=== PATIENT | male | born 1945 | race Caucasian/White ===

== ENCOUNTER → 2017-01-17 | Outpatient (CLI) | payer OTHER, MEDICARE ==
[~2017-01-17] MED LIST: ACETAMINOPHEN; AMLODIPINE BESY10 MG PO; ARTHRITIS PAIN650 M4 PO; CIPRO PO; FLOMAX0.4 M1 PO; ISOSORBIDE DINI30 MG PO; SOF-LAX100 MG PO; SYNTHROID25 MCG PO
--- NOTE | ~2017-01-17 | CT2 ---
[facility] A Service of [facility] RADIOLOGY TEXT RESULTS PATIENT: LISA STEINER JR LOCATION: [facility] : 49 UNIT #: [id number] AGE: [address]: Osorio Tan MD SEX: M ORDER DR: [id number] [facility]. [place], [place] [address] [id number] O MR#: [id number] Acc #: [id number] NAME: LISA STEINER JR : 1945 SEX: M STUDY DATE/TIME: 01/17/2017 10:09 UNIT: [facility] ROOM: STUDY DESCRIPTION: CT Abd and Pelv W Cont Attending Physician: Osorio Tan M.D. Ordering Physician: Osorio Tan M.D. Primary Care Physician: Gilberto Clay M.D. MEDICAL IMAGING REPORT This report is preliminary unless electronic signature is present EXAM CT of the abdomen and pelvis. INDICATIONS Shortness of air, anemia, fatigue and generalized weakness increasing in severity. TECHNIQUE CT of the abdomen and pelvis with p.o. and IV contrast (100 mL Isovue-370 IV contrast). Coronal and sagittal reconstructions were obtained. This CT exam was performed with one or more of the following radiation dose reduction techniques: automatic exposure control, adjustment of mA and/or kV according to patient size, and iterative reconstruction. COMPARISON CT of abdomen and pelvis, 11/14/2014. FINDINGS ABDOMEN: Solid abdominal organs enhance normally. The gallbladder is not distended. There are a few small cysts within the kidneys. No hydronephrosis. The bowel is not dilated. There are some left-sided colonic diverticula. Normal appendix. The abdominal aorta is normal in caliber. PELVIS: No pelvic mass. The bladder is unremarkable. No enlarged pelvic or inguinal lymph nodes. No acute osseous abnormalities. IMPRESSION 1. No acute findings in the abdomen or pelvis. [facility] A Service of [facility] / [facility] RADIOLOGY TEXT RESULTS PATIENT: LISA STEINER JR LOCATION: [facility] : 49 UNIT #: [id number] AGE: [address]: Osorio Tan MD SEX: M ORDER DR: Dictated by... Reynaldo Bledsoe M.D. THIS IS AN ELECTRONICALLY VERIFIED REPORT Reynaldo Bledsoe M.D. at 01/19/2017 5:11 PM UVALDO/ramesh TD: 01/18/2017 16:01 JOB #: [id number] MEDICAL IMAGING REPORT Page 1 of 1 COPY
[2017-01-17 11:26] LABS: POC - CREATININE 1.11 mg/dL (0.64-1.27); POC - GFR >60.0 mL/min (>60)
== END | disposition home or self-care (01) ==
LOC: CCAT 08:37
PROVIDERS: Internal Medicine Hematology & Oncology
DX: D59.9 Acquired hemolytic anemia, unspecified (principal); D64.9 Anemia, unspecified; R06.02 Shortness of breath; R53.81 Other malaise; R53.83 Other fatigue
CPT/HCPCS: 74177; 82565; Q9967

== ENCOUNTER → 2017-01-20 | Outpatient (CLI) | payer OTHER, MEDICARE ==
[~2017-01-20] VITALS: Ht 172.7 cm; Wt 76.4 kg
--- NOTE | ~2017-01-20 | XA51 ---
[facility] A Service of [facility] RADIOLOGY TEXT RESULTS PATIENT: LISA STEINER JR [facility] : 49 UNIT #: [id number] AGE: [address]: Osorio Tan MD SEX: M ORDER DR: [id number] [facility]. [place], [place] [address] [id number] O MR#: [id number] Acc #: [id number] NAME: LISA STEINER JR : 1945 SEX: M STUDY DATE/TIME: 01/20/2017 8:12 [facility] ROOM: STUDY DESCRIPTION: XA BX Bone Marrow Attending Physician: Osorio Tan M.D. Ordering Physician: Osorio Tan M.D. Primary Care Physician: Gilberto Clay M.D. MEDICAL IMAGING REPORT This report is preliminary unless electronic signature is present PROCEDURE Fluoroscopic guided bone marrow biopsy and aspiration. INDICATION Anemia. The fluoro time was 0.9 minutes. Reference air kerma is 42 mGy. Medications administered 3.5 mg of Versed IV and 75 mcg of Fentanyl IV. Approximately 30 minutes of sedation time was monitored by appropriately credentialed radiology nursing staff with 10 minutes of [id number] direct supervision provided by Dr. Blandon. Risks, benefits, and alternatives to the procedure were discussed with the patient. Informed consent was obtained. In the procedure room a time-out was performed confirming correct patient and procedure. All elements of maximum sterile-barrier technique utilized according to guidelines appropriate for the procedure. TECHNIQUE/FINDINGS Patient was placed in the prone position on the fluoroscopy table. Skin overlying the posterior iliac bone was prepped and draped in the usual sterile fashion. 1% lidocaine was utilized to anesthetize the skin and underlying subcutaneous tissues. Next, under fluoroscopic guidance, a 11-gauge needle was advanced into the posterior right iliac crest. Through this access a bone marrow aspirate followed by core biopsy was obtained. Sample sent to pathology. The needle was removed and a sterile dressing was applied. No immediate complications. IMPRESSION Technically successful fluoroscopically guided bone marrow biopsy and aspiration. STS. [facility] A Service of [facility] RADIOLOGY TEXT RESULTS PATIENT: LISA STEINER JR [facility] : 49 UNIT #: [id number] AGE: [address]: Osorio Tan MD SEX: M ORDER DR: Dictated by... Chris Blandon M.D. THIS IS AN ELECTRONICALLY VERIFIED REPORT Chris Blandon M.D. at 01/22/2017 5:01 PM Lucho TD: 01/21/2017 10:49 JOB #: [id number] MEDICAL IMAGING REPORT Page 1 of 1 COPY
[2017-01-20 06:39] LABS: HEMATOCRIT 34.6 % (38.0-50.0); HEMOGLOBIN 11.2 gm/dL (13.0-16.0); MEAN CELL VOLUME 86.1 FL (83-96); MEAN CORPUSCULAR HEMOGLOBIN 27.9 PG (28-34); MEAN CORPUSCULAR HGB CONC 32.5 g/dL (30-36); MEAN PLATELET VOLUME 10.7 FL (6.5-11.5); RED BLOOD COUNT 4.02 X10e (3.90-5.60); RED CELL DISTRIBUTION WIDTH 26.6 % (11.0-15.5); WHITE BLOOD COUNT 4.5 X10e3 (4.0-10.5)
[2017-01-20 06:48] LABS: PROTHROMBIN TIME (PATIENT) 10.6 SECONDS (10.0-11.7)
== END | disposition home or self-care (01) ==
LOC: CIVR 05:57
PROVIDERS: Internal Medicine Hematology & Oncology
PROC: 07DR3ZX Extraction of Iliac Bone Marrow, Percutaneous Approach, Diagnostic (ICD-10-PCS; principal; 2017-01-20)
PROC: 079T3ZX Drainage of Bone Marrow, Percutaneous Approach, Diagnostic (ICD-10-PCS; 2017-01-20)
DX: D46.9 Myelodysplastic syndrome, unspecified (principal); R06.02 Shortness of breath; R53.81 Other malaise; R53.83 Other fatigue; I12.9 Hypertensive chronic kidney disease with stage 1 through stage 4 chronic kidney disease, or unspecified chronic kidney disease; N18.3 Chronic kidney disease, stage 3 (moderate); D63.1 Anemia in chronic kidney disease; N40.0 Benign prostatic hyperplasia without lower urinary tract symptoms; Z87.891 Personal history of nicotine dependence; R06.83 Snoring; Z79.899 Other long term (current) drug therapy; Z87.898 Personal history of other specified conditions; Z80.3 Family history of malignant neoplasm of breast; Z88.6 Allergy status to analgesic agent
CPT/HCPCS: 38221; G0364; 36415; 77002; 85027; 85610; 85730; 88305; 88311; 88313; J2250; J3010